=== PATIENT | male | born 1990 | race Caucasian/White ===

== ENCOUNTER 2022-07-10 10:57 | Emergency (ER) | payer SELFPAY ==
[2022-07-10 12:09] LABS: CORONAVIRUS COVID-19 NAA NEGATIVE (NEGATIVE)
[2022-07-10 12:15] LABS: ESTIMATED GFR 116 mL/min (>60)
[2022-07-10] MEDS ORDERED: Albuterol 6.7 GM Inhaler INH ONE (12:34)
== END 2022-07-10 13:41 | disposition home or self-care (01) ==
LOC: JD.ED 10:57
DX: J01.90 Acute sinusitis, unspecified (principal); B34.9 Viral infection, unspecified; F17.210 Nicotine dependence, cigarettes, uncomplicated; Z79.899 Other long term (current) drug therapy; Z20.822 Contact with and (suspected) exposure to COVID-19
CPT/HCPCS: 0241U; 36415; 71046; 80053; 85025; 86140; 99285; A9270

== ENCOUNTER 2022-09-09 13:47 | Emergency (ER) | payer SELFPAY ==
[2022-09-09] MEDS ORDERED: Acetaminophen/HYDROcodone 325-5 MG Tab PO ONE (14:19)
[2022-09-09] MEDS ORDERED: Ketorolac 30 MG/ML SDV IM ONE (14:20)
== END 2022-09-09 16:02 | disposition home or self-care (01) ==
LOC: JD.ED 13:47
DX: S52.201A Unspecified fracture of shaft of right ulna, initial encounter for closed fracture (principal); Z72.0 Tobacco use; W20.8XXA Other cause of strike by thrown, projected or falling object, initial encounter
CPT/HCPCS: 29125; 36415; 73090; 73110; 82553; 85025; 96372; 99283; A9270; J1885

== ENCOUNTER 2022-09-18 13:25 | Emergency (ER) | payer SELFPAY | END 2022-09-18 16:18 | disposition home or self-care (01) | LOC: JD.ED 13:25 | DX: S52.601A Unspecified fracture of lower end of right ulna, initial encounter for closed fracture (principal) | CPT/HCPCS: 29125; 73090-26-RT; 73090-RT; 99283 ==